=== PATIENT | female | born 1990 | race Caucasian/White ===

== ENCOUNTER 2019-12-19 08:10 | Inpatient (IN) | payer OTHER, SELFPAY ==
[2019-12-19] MEDS ORDERED: Methylergonovine 0.2 MG/ML VIAL IM PRN (08:31)
[2019-12-19] MEDS ORDERED: Lidocaine 1% (PF) 30 ML VIAL SC PRN (08:31)
[2019-12-19] MEDS ORDERED: Calcium Gluc 4.6 MEQ/10 ML (100 MG/ML) SLOW IVP PRN (08:31)
[2019-12-19] MEDS ORDERED: Promethazine HCl 25 MG/ML VIAL IM PRN ×2 (08:31→10:10)
[2019-12-19] MEDS ORDERED: Ondansetron PF 4 MG/2 ML Vial IVP PRN ×2 (08:31→10:10)
[2019-12-19] MEDS ORDERED: Butorphanol Tartrate 1 MG/ML VIAL SLOW IVP PRN (08:31)
[2019-12-19] MEDS ORDERED: Acetaminophen 500 MG TAB PO PRN (08:31)
[2019-12-19] MEDS ORDERED: Misoprostol 200 MCG TAB PR PRN (08:31)
[2019-12-19] MEDS ORDERED: hydrALAZINE 20 MG/ML VIAL SLOW IVP PRN (08:31)
[2019-12-19] MEDS ORDERED: Ibuprofen 800 MG TAB PO PRN (08:31)
[2019-12-19] MEDS ORDERED: Carboprost 250 MCG/ML AMP IM PRN (08:31)
[2019-12-19] MEDS: Lactated Ringer's 1,000 ML IV SCH ×3 (08:40→13:26)
[2019-12-19] MEDS ORDERED: hydrALAZINE 20 MG/ML VIAL ONE (08:42)
[2019-12-19] MEDS ORDERED: NS w/ Oxytocin 10 units 500 ML IV SCH ×2 (08:45)
[2019-12-19] MEDS ORDERED: Penicillin G Potassium 5 MILL.UNITS in Sodium Chloride 0.9% 100 ML IVPB SCH (08:45)
[2019-12-19 08:48] VITALS: BMI 34.0
[2019-12-19] MEDS ORDERED: Magnesium Sulfate 20 gm/500 ml 20 GM/500 ML BAG ONE (08:48)
[2019-12-19] MEDS ORDERED: Magnesium Sulfate 20 gm/500 ml 20 GM/500 ML BAG IVPB SCH (09:00)
[2019-12-19] MEDS ORDERED: Magnesium Sulfate 20 GM/WATER 500 ML BAG IVPB SCH (09:00)
[2019-12-19 09:02] LABS: Hemoglobin 11.6 g/dL (12.0-16.0); Mean Corpuscular HGB CONC 33.4 g/dL (32.0-36.0); Mean Corpuscular Volume 92.8 fL (78.0-98.0); Mean Platelet Volume 11.1 fL (7.4-10.4); Platelet Count 244 thou/uL (130-400); RBC Distribution Width 13.1 % (11.5-14.5); Red Blood Cell (RBC) Count 3.74 mill/uL (4.20-5.40)
[2019-12-19] MEDS ORDERED: Fentanyl 4 mcg/Bup 0.1% Cadd 100 ML ONE (09:02)
[2019-12-19] MEDS ORDERED: Tranexamic Acid 1,000 MG/10 ML VIAL ONE (09:12)
[2019-12-19] MEDS ORDERED: Tranexamic Acid 1,000 MG in Sodium Chloride 0.9% 100 ML IVP SCH (09:13)
[2019-12-19 09:37] LABS: Syphilis Antibody Nonreactive (Nonreactive); Syphilis Antibody Index 0.02 S/CO (<1.00 Non-Reactive)
[2019-12-19 09:43] LABS: ALT (SGPT) 8 U/L (8-55); AST (SGOT) 11 U/L (5-34); Albumin 3.3 g/dL (3.5-5.0); Alkaline Phosphatase 116 U/L (40-110); Anion Gap 15 mmol/L (10-20); BUN (Urea Nitrogen) 8 mg/dL (7.0-18.7); Bilirubin, Total 0.2 mg/dL (0.2-1.2); Calc. Creatinine Clearance 217 mL/min (70-130); Calcium 9.7 mg/dL (7.8-10.44); Carbon Dioxide 20 mmol/L (22-29); Chloride 105 mmol/L (98-107); Estimated GFR-MDRD Greater than 90; Globulin 3.1 g/dL (2.4-3.5); Glucose 88 mg/dL (70-105); Protein, Total 6.4 g/dL (6.0-8.3); Sodium 136 mmol/L (136-145)
[2019-12-19 09:51] LABS: HBSAg Index 0.13 S/CO (0-0.99); HIV (1/2) Antibody/Antigen Non-Reactive (NonReactive); HIV 1/2 INDEX 0.18 S/CO (<1.00); Hep B Surf AB Non-Reactive (NonReactive); Hep B Surf Ag Non-Reactive S/CO (NonReactive)
[2019-12-19 09:52] LABS: HBSAB Concentration 1.32 mIU/mL
--- NOTE | 2019-12-19 10:00 | ULT ---
OB ULTRASOUND: BIOPHYSICAL PROFILE ULTRASOUND: HISTORY: The patient is in active labor. No care. FINDINGS: A single live intrauterine gestation is seen with measurements corresponding to an estimated gestatio nal age of 37 weeks 0 days and an MARIN of 01/09/2020. The estimated weight measures 3042 g (6 lb s 11 oz), 80th percentile by Hadlock criteria. measurements are as follows: BPD: 9.11 cm (37 weeks 0 days) HC: 32.16 cm (36 weeks 2 days) AC: 31.92 cm (35 weeks 6 days) FL: 7.62 cm (39 weeks 0 days) heart rate measures 150 beats per minute. Placenta is anteriorly located without evidence of pl acenta previa. DOROTHEA measures 7.4 cm. anatomy was not satisfactorily evaluated. The presentation is vertex. OBSTETRICAL BIOPHYSICAL PROFILE: tone: 0 breathin movement: 2 Amniotic fluid: 2 IMPRESSION: 1. A single live intrauterine of 37 weeks' 0 days' estimated gestational age and an estimat ed date of delivery of 01/09/2020. 2. Ultrasound biophysical profile score is 4/8. The report was given to the patient's nurse (Britany) by the lace sewer at the time of the exam. POS: OFF
[2019-12-19 10:03] LABS: #Basophils 0.1 thou/uL (0.0-0.2); #Eosinphils 0.1 thou/uL (0.0-0.7); #Lymphocytes 1.9 thou/uL (1.20-3.40); #Monocytes 0.7 thou/uL (0.11-0.59); #Neutrophils 8.3 thou/uL (1.40-6.50); %Basophils 0.5 % (0.0-1.0); %Eosinophils 0.9 % (0.0-10.0); %Lymphocytes 17.5 % (21.0-51.0); %Monocytes 6.1 % (0.0-10.0); %Neutrophils 74.9 % (42.0-75.0)
[2019-12-19 10:09] LABS: Bilirubin Negative (Negative); Blood, Urine Negative (Negative); Clarity Clear (Clear); Glucose, Urine (Dipstick) Normal (Negative); Leukocyte Negative Leu/uL (Negative); Nitrite Negative (Negative); Protein, Urine (Dipstick) 20 mg/dL (Neg-Trace); RBC/HPF 0-3 HPF (0-3); Squamous Epithelial 0-3 HPF (0-3); Urobilinogen Normal mg/dL (Less than 2); WBC/HPF 0-3 HPF (0-3)
[2019-12-19 10:10] LABS: Bacteria/HPF 1+ HPF (None Seen)
[2019-12-19] MEDS ORDERED: Lactated Ringer's 500 ML IV PRN (10:10)
[2019-12-19] MEDS ORDERED: EPHEDRINE 25 MG/5 ML SYRINGE SLOW IVP PRN (10:10)
[2019-12-19] MEDS ORDERED: diphenhydrAMINE 50 MG/ML VIAL IVP PRN (10:10)
[2019-12-19] MEDS ORDERED: Naloxone HCl 0.4 mg/ml Vial IVP PRN ×2 (10:10)
[2019-12-19] MEDS ORDERED: Fentanyl 4 mcg/Bupivacaine 0.1% Cassette 100 ML EPIDURAL SCH (10:15)
[2019-12-19] MEDS ORDERED: Communication Order-Pharmacy FS SCH (10:15)
[2019-12-19 10:16] LABS: Amphetamine Not Detected (NotDetected); Barbiturates Screen Not Detected (NotDetected); Benzodiazepine Screen Not Detected (NotDetected); Cocaine Metabolite Screen Not Detected (NotDetected); Medtox Control Line Valid? VALID (VALID); Medtox Reader # READER 4; Methadone Not Detected (NotDetected); Methamphetamine Not Detected (NotDetected); Opiate Screen Not Detected (NotDetected); Oxycodone Screen Not Detected (NotDetected); Phencyclidine (PCP) Not Detected (NotDetected); THC/Cannabinoid Screen Not Detected (NotDetected); Tricyclic Screen Not Detected (NotDetected)
--- NOTE | 2019-12-19 10:19 | PDOC.FPROB ---
FMR OB H&P: HPI - History of Present Illness Chief Complaint: Ctx Indentification: 29 yo @ 35.5 weeks by unsure LMP History of Present Illness: 29 yo is here presents with ctx. Pt having painful ctx only a few minutes apart. Pt has had no care. Denies any LOF. Reports some spotting earlier this morning. Reports FM. Denies any headaches, vision changes. Denies any swelling. Denies any n/v/d/c. Pt denies any urinary sx's or burning. Primary Care Physician: No care FMR OB H&P: Current - Care : 3 Para: 1 Gestational age: 35.5 - OB Labs Blood type: unknown RH: unknown Antibody Screen: unknown HIV: unknown RPR: unknown HepBsAg: unknown Quad screen: unknown Urine drug screen: not done Gonorrhea: unknown Chlamydia: unknown GBS: unknown FMR OB H&P: History - Past Medical History PMH: GERD w/ ulcers, Anxiety, Asthma - OB History OB History: Hx of Pre-Eclampsia and PP hemorrhage in prior delivery, Hx of miscarriagex1 - NEUROPHYSIOLOGY TECH History NEUROPHYSIOLOGY TECH History: Denies any hx of STD or abnormal pap smears - Surgical History Sx History: None - Social History Social History: Denies any smoking, drinking or illicit drug use during . - Family History Family History: Noncontributory FMR OB H&P: Medications - Current Home Medications: Medication Instructions Recorded Confirmed Type Vitamin 1 tab PO DAILY 12/19/19 12/19/19 History Allergies/Adverse Reactions: Allergies Allergy/AdvReac Type Severity Reaction Status Date / Time No Known Drug Allergies Allergy Verified 12/19/19 08:37 FMR OB H&P: ROS - Review of Systems General: denies: fever/chills, weight/appetite/sleep changes Eyes: denies: vision changes, double vision, scotomas Cardiovascular: denies: chest pain Respiratory: denies: cough, congestion, shortness of breath Gastrointestinal: denies: abdominal pain, cramping, nausea, vomiting, diarrhea, constipation Genitourinary (Female): denies: incontinence, dysuria, hematuria Musculoskeletal: denies: pain, swelling Neurologic: denies: numbness, seizures Integumentary: denies: itching, rash Hematologic/Lymphatic: denies: prolonged or excessive bleeding Psychological: reports: anxiety. denies: depression FMR OB H&P: Vital Signs - Maternal Vital signs: Vital Signs - First Documented Temp Pulse Resp BP 98.9 F 88 22 H 166/101 H 12/19/19 08:21 12/19/19 08:21 12/19/19 08:21 12/19/19 08:21 - Heart Tones Baseline: 130 Variability: moderate Acceleration: present Deceleration: absent Category: category 1 [place] contractions every: 2-3 minutes FMR OB H&P: Physical Exam - Physical Exam General: NAD, awake, alert and oriented HEENT: normocephalic and atraumatic, grossly normal vision, grossly normal hearing Neck: supple, FROM, trachea midline Heart: RRR, normal S1/S2, no murmurs/rubs/gallops, pulses present, no edema General: CTAB, no respiratory distress, good air movement, no rales/rhonchi, no wheezing, no retractions Abdomen: soft, gravid, non-tender, bowel sound present, no masses Musculoskeletal: normal gait and station, FROM in all four extremities Neurological: sensation to pain,touch and proprioception grossly normal Skin: no rash, capillary refill <2 seconds Lymphatic: no unusual bruising or bleeding - Pelvic Exam SVE: 5/80/-2 upon admisson FMR OB H&P: Results - Labs Lab results: Laboratory Results - last 24 hr 12/19/19 12/19/19 12/19/19 08:43 08:43 08:44 WBC 11.0 H RBC 3.74 L Hgb 11.6 L Hct 34.7 L MCV 92.8 MCH 31.0 MCHC 33.4 RDW 13.1 Plt Count 244 MPV 11.1 H Neutrophils % 74.9 Neutrophils % (Manual) Not Reportable Lymphocytes % 17.5 L Monocytes % 6.1 Eosinophils % 0.9 Basophils % 0.5 Neutrophils # 8.3 H Lymphocytes # 1.9 Monocytes # 0.7 H Eosinophils # 0.1 Basophils # 0.1 Sodium Potassium Chloride Carbon Dioxide Anion Gap BUN Creatinine Estimated GFR (MDRD) Glucose Calcium Total Bilirubin AST ALT Alkaline Phosphatase Serum Total Protein Albumin Globulin Albumin/Globulin Ratio Urine Color Urine Clarity Urine pH Ur Specific [place] Urine Protein Urine Glucose (UA) Urine Ketones Urine Blood Urine Nitrite Urine Bilirubin Urine Urobilinogen Ur Leukocyte Esterase Urine RBC Urine WBC Ur Squamous Epith Cells Urine Bacteria Urine Opiates Screen Ur Oxycodone Screen Urine Methadone Screen Ur Propoxyphene Screen Ur Barbiturates Screen Ur Tricyclics Screen Ur Phencyclidine Scrn Ur Amphetamines Screen U Methamphetamines Scrn U Benzodiazepines Scrn U Cocaine Metab Screen U Cannabinoids Screen Drug Screen Comment Syphilis IgG/IgM Ab Nonreactive Hep Bs Antigen Hep Bs Antibody Hep Bs Antibody Index HIV 1&2 Antigen & Ab Blood Type O POSITIVE Antibody Screen NEGATIVE 12/19/19 12/19/19 12/19/19 08:46 08:57 08:57 WBC RBC Hgb Hct MCV MCH MCHC RDW Plt Count MPV Neutrophils % Neutrophils % (Manual) Lymphocytes % Monocytes % Eosinophils % Basophils % Neutrophils # Lymphocytes # Monocytes # Eosinophils # Basophils # Sodium Potassium Chloride Carbon Dioxide Anion Gap BUN Creatinine Estimated GFR (MDRD) Glucose Calcium Total Bilirubin AST ALT Alkaline Phosphatase Serum Total Protein Albumin Globulin Albumin/Globulin Ratio Urine Color Light-Yellow Urine Clarity Clear Urine pH 6.5 Ur Specific [place] 1.019 Urine Protein 20 Urine Glucose (UA) Normal Urine Ketones Negative Urine Blood Negative Urine Nitrite Negative Urine Bilirubin Negative Urine Urobilinogen Normal Ur Leukocyte Esterase Negative Urine RBC 0-3 Urine WBC 0-3 Ur Squamous Epith Cells 0-3 Urine Bacteria 1+ A Urine Opiates Screen Not Detected Ur Oxycodone Screen Not Detected Urine Methadone Screen Not Detected Ur Propoxyphene Screen Not Detected Ur Barbiturates Screen Not Detected Ur Tricyclics Screen Not Detected Ur Phencyclidine Scrn Not Detected Ur Amphetamines Screen Not Detected U Methamphetamines Scrn Not Detected U Benzodiazepines Scrn Not Detected U Cocaine Metab Screen Not Detected U Cannabinoids Screen Not Detected Drug Screen Comment Syphilis IgG/IgM Ab Hep Bs Antigen Non-Reactive Hep Bs Antibody Non-Reactive Hep Bs Antibody Index 1.32 HIV 1&2 Antigen & Ab Non-Reactive Blood Type Antibody Screen 12/19/19 12/19/19 09:08 09:10 WBC RBC Hgb Hct MCV MCH MCHC RDW Plt Count MPV Neutrophils % Neutrophils % (Manual) Lymphocytes % Monocytes % Eosinophils % Basophils % Neutrophils # Lymphocytes # Monocytes # Eosinophils # Basophils # Sodium 136 Potassium 4.0 Chloride 105 Carbon Dioxide 20 L Anion Gap 15 BUN 8 Creatinine 0.63 Estimated GFR (MDRD) Greater than 90 Glucose 88 Calcium 9.7 Total Bilirubin 0.2 AST 11 ALT 8 Alkaline Phosphatase 116 H Serum Total Protein 6.4 Albumin 3.3 L Globulin 3.1 Albumin/Globulin Ratio 1.1 L Urine Color Urine Clarity Urine pH Ur Specific [place] Urine Protein Urine Glucose (UA) Urine Ketones Urine Blood Urine Nitrite Urine Bilirubin Urine Urobilinogen Ur Leukocyte Esterase Urine RBC Urine WBC Ur Squamous Epith Cells Urine Bacteria Urine Opiates Screen Ur Oxycodone Screen Urine Methadone Screen Ur Propoxyphene Screen Ur Barbiturates Screen Ur Tricyclics Screen Ur Phencyclidine Scrn Ur Amphetamines Screen U Methamphetamines Scrn U Benzodiazepines Scrn U Cocaine Metab Screen U Cannabinoids Screen Drug Screen Comment Syphilis IgG/IgM Ab Hep Bs Antigen Hep Bs Antibody Hep Bs Antibody Index HIV 1&2 Antigen & Ab Blood Type O POSITIVE Antibody Screen FMR OB H&P: A/P - Problem List (1) Current Visit: Yes Status: Acute Qualifiers: Weeks of gestation: 35 weeks Qualified Code(s): Z3A.35 - 35 weeks gestation of (2) Preeclampsia, severe Current Visit: Yes Status: Acute Code(s): O14.10 - SEVERE PRE-ECLAMPSIA, UNSPECIFIED TRIMESTER (3) No care in current Current Visit: Yes Status: Acute Code(s): O09.30 - SUPRVSN OF PREG W INSUFFICIENT ANTENAT CARE, UNSP TRIMESTER Disposition: 29 yo @ 35.5 weeks by unsure LMP and no care presents w/ ctx , No care -Routine OB labs ordered. -GBS, G/CT cultures ordered. -Growth, Dating sono ordered. -SVE upon admission showed pt dilated to 5/80/-2. Pt have ctx every 2-3 minutes. Pt in labor. Membranes intact. -Anesthesia consulted- epidural wanted -Will admit and manage labor. -GBS unknown- Penicillin ppx ordered Pre-E w/ Severe features -Pt had two severe range pressures upon admission. -Pre-E labs CMP, CBC, pr/cr urine ratio ordered. -Will start on Mg for treatment. -Hydralazine IV prn for severe range pressures. -will augment labor as needed for delivery Hx PP hemorrhage -Never required blood products. -Pt htn and has asthma. TXA prn ordered Hx of Asthma -No recent exacerbations -Avoid hemabate Discussion: Date/Time: 12/19/19 1017 This H&P was discussed with [] and [] who agree with the above documentation and plan. Addendum - Attending - Attending Attestation Date/Time: 12/19/19 5988 I personally evaluated the patient and discussed the management with Dr. Sorenson. with no PNC presents in labor with elevated BP. Biometry c/w term IUP. Mg started and will proceed with delivery. I agree with the History, Examination, Assessment and Plan documented above.
[2019-12-19] MEDS ORDERED: Bupivacaine/Epinephrine 0.25% 30 ML VIAL ONE (11:04)
[2019-12-19 11:27] LABS: Creatinine, Urine 30.53 mg/dL (47-110)
[2019-12-19] MEDS ORDERED: Penicillin G 2.5 MILL.units 2.5 MILL.UNITS in Premix Bag 1 BAG IVPB SCH (13:00)
[2019-12-19] MEDS: NS / Oxytocin 40 units/1000ml 1,000 ML IV PRN ×2 (14:45→20:04)
[2019-12-19 15:06] LABS: Actual Bicarbonate (HCO3a) 24.3 mEq/L (22-28); Actual Bicarbonate (HCO3v) 23 mEq/L (22-28); Base Excess -5.1 mEq/L (-2.0 to +3.0); Base Excess (BEa) -4.7 mEq/L (-2.0 to +3.0); pH (Cord, venous) 7.26 (7.32-7.43)
[2019-12-19] MEDS ORDERED: Milk Of Magnesia 30 ML UDCUP PO PRN (15:06)
[2019-12-19] MEDS ORDERED: Bisacodyl 10 MG SUPP PR PRN (15:06)
[2019-12-19] MEDS ORDERED: Lanolin Ointment 7 GM TUBE TOP PRN (15:06)
[2019-12-19] MEDS ORDERED: diphenhydrAMINE 25 MG CAP PO PRN (15:06)
[2019-12-19] MEDS ORDERED: Benzocaine-Menthol 82.5 ML CAN TOP PRN (15:06)
[2019-12-19] MEDS ORDERED: Preparation H Ointment 28 GM TUBE PR PRN (15:06)
--- NOTE | 2019-12-19 15:49 | PDOC.LDPN ---
Labor & Delivery Progress Note - Subjective Subjective: comfortable - Objective Vital signs reviewed and normal: yes General: NAD, resting Uterine fundus: non tender SVE: 12:00 Dilation: 6 Effacement: 100% Station: -1 FHT: category 1 [place] contractions every: 2-3 minutes - Assessment (1) Current Visit: Yes Status: Acute Qualifiers: Weeks of gestation: 35 weeks Qualified Code(s): Z3A.35 - 35 weeks gestation of (2) Preeclampsia, severe Code(s): O14.10 - SEVERE PRE-ECLAMPSIA, UNSPECIFIED TRIMESTER Current Visit: Yes Status: Acute (3) No care in current Code(s): O09.30 - SUPRVSN OF PREG W INSUFFICIENT ANTENAT CARE, UNSP TRIMESTER Current Visit: Yes Status: Acute Plan: continue plan of care, pitocin for augmentation -: 29 yo @ 35.5 weeks by unsure LMP and no care presents w/ ctx , No care -GBS, G/CT cx pending -labs reviewed and no abnormality noted -SVE @ 12 6/100/-1. Pt SROM -Epidural placed. -CAT 1 strip. FHR 140. Pt had episode of variable after epidural placement and BP dropped. Dose ephedrine given and tracing quickly recovered. -Pitocin for augmentation of labor. Pre-E w/ Severe features -Pt had two severe range pressures upon admission. -Pre-E labs reviewed. Pr/Cr urine ratio .36. -Getting Mg infusion. -Hydralazine IV prn for severe range pressures. Hx PP hemorrhage -Never required blood products. -Pt htn and has asthma. TXA prn ordered Hx of Asthma -No recent exacerbations -Avoid hemabate Addendum - Attending - Attending Attestation Date/Time: 12/19/192033 I personally evaluated the patient and discussed the management with Dr. Sorenson. I agree with the History, Examination, Assessment and Plan documented above.
--- NOTE | 2019-12-19 15:54 | PDOC.OPDEL ---
OB Operative/Delivery Note Delivery Dr/Surgeon: Yas Guidry PGY-3 Pre-Delivery Diagnosis: active labor, other (Pre-Eclampsia w/ Severe Features) Weeks gestation: 35 (5 days) Anesthesia: epidural - Additional Findings/Plan Placenta delivered: spontaneous Repaired Obstetrical Laceration: none Estimated blood loss: 150 Compilations/Other Findings: Delivery note: This is a 29 yo F @ 35.5 weeks by unsure LMP delivered a viable F 14:39. Following an uneventful antepartum course, a vigourous F was delivered over and intact perineum in the occipitoanterior position. There was some delayed delivery of antior shoulder and body due to poor maternal pushing. Pt was placed in prophylactic [facility] position and was then delivered. No nuchal cord. The head was held down and mouth and nares were bulb suctioned. Cord clamped and cord gas segment and cord blood was obtained. PLacenta delivered intact w/ a 3 vessel cord noted. Fundal massage was performed and the fundus was noted to be firm. There was some mild delay of uterus to firm and with pt hx of pp hemorrhage, a dose of cytotec was given rectally. The cervix and vagina were inspected and found to free of lacerations. Infant went to nursery in good condition for routine care. Apgars were 7/9 at 1,5 minutes respectively. Pt tolerated delivery well and will continue to get Mg infusion for 24 hours 2/2 severe pre- eclampsia. Placenta was sent for path due to no care. Post delivery plan: recovery in LICU Addendum - Attending - Attending Attestation Date/Time: 12/19/192032 I personally assisted with this with Dr. Sorenson I agree with the Assessment and Plan documented above.
[2019-12-19] MEDS: Acetaminophen 325 MG TAB PO PRN (20:05)
[2019-12-19] MEDS: Ferrous Sulfate 325 MG TAB PO SCH (20:57)
[2019-12-20] MEDS: Acetaminophen 325 MG TAB PO PRN (01:56)
--- NOTE | 2019-12-20 05:31 | PDOC.PP ---
Post Progress Note Post Day #: 1 Subjective: Pt reports doing well. Reports light lochia. Tolerating PO. Denies any fever or chills. Reports pain well controlled. Denies any chest pain or SOB. PO intake tolerated: yes Flatus: yes Ambulation: yes Vital Signs (12 hours) Pulse 12/19/19 20:56 88 Weight Weight 104.326 kg - Physical Examination General: NAD Cardiovascular: no m/r/g, RRR Respiratory: clear to auscultation bilaterally, non-labored breathing Abdominal: + bowel sounds, lochia (light), no distention, appropriately TTP Fundus firm & at: below umbilicus Extremities: negative homans (B) Neurological: no gross focal deficits (+2 DTR noted) Psychiatric: A&Ox3, normal affect Result Diagrams: 12/19/19 08:43 12/19/19 09:08 Additional Labs: Post Labs Blood Type O POSITIVE 12/19/19 09:10 Hep Bs Antigen Non-Reactive S/CO (NonReactive) 12/19/19 08:46 (1) Status: Acute Qualifiers: Weeks of gestation: 35 weeks Qualified Code(s): Z3A.35 - 35 weeks gestation of (2) Preeclampsia, severe Code(s): O14.10 - SEVERE PRE-ECLAMPSIA, UNSPECIFIED TRIMESTER Status: Acute (3) No care in current Code(s): O09.30 - SUPRVSN OF PREG W INSUFFICIENT ANTENAT CARE, UNSP TRIMESTER Status: Acute - Assessment/Plan 29 yo @ 35.5 weeks by unsure LMP delivered [place] F on 12/19/19 via @ Post , No care -GBS, G/CT cx pending -labs reviewed and no abnormality noted -Pain well controlled -VSS Pre-E w/ Severe features -Pt had two severe range pressures upon admission. -Pre-E labs reviewed. Pr/Cr urine ratio .36. -Getting Mg infusion pp for 24 hours. Infusion will end around 1400 today -Hydralazine IV prn for severe range pressures. -Urine Output 100-200 ml/hr Dispo: will stop mag infusion later today and watch BP pp for 24 hours. Addendum - Attending - Attending Attestation Date/Time: 12/20/19 0649 I personally evaluated the patient and discussed the management with Dr. Sorenson. Doing well s/p , on Mg x 24 hrs. I agree with the History, Examination, Assessment and Plan documented above.
[2019-12-20 06:51] LABS: Hemoglobin 10.3 g/dL (12.0-16.0); Mean Corpuscular HGB CONC 32.9 g/dL (32.0-36.0); Mean Corpuscular Hemoglobin 31.2 pg (27.0-31.0); Mean Corpuscular Volume 94.9 fL (78.0-98.0); Mean Platelet Volume 10.4 fL (7.4-10.4); Platelet Count 202 thou/uL (130-400); RBC Distribution Width 13.2 % (11.5-14.5); Red Blood Cell (RBC) Count 3.29 mill/uL (4.20-5.40); White Blood Cell (WBC) Count 15.3 thou/uL (4.8-10.8)
[2019-12-20] MEDS ORDERED: Prenatal Vitamin 1 TAB PO SCH (09:00)
[2019-12-20] MEDS: Docusate Calcium (SURFAK) 240 MG CAP PO SCH ×3 (10:37→21:32)
[2019-12-20] MEDS: Ferrous Sulfate 325 MG TAB PO SCH ×2 (10:37→17:04)
[2019-12-20] MEDS ORDERED: Adacel (T-DAP) 0.5 ML SYRINGE IM ONE (15:06)
[2019-12-20] MEDS ORDERED: Bisacodyl 10 MG SUPP PR PRN (15:12)
[2019-12-20] MEDS ORDERED: Milk Of Magnesia 30 ML UDCUP PO PRN (15:12)
[2019-12-20] MEDS ORDERED: Acetaminophen/Codeine 30-300mg Tablet PO PRN ×2 (15:13)
--- NOTE | 2019-12-20 15:15 | PDOC.EVN ---
Event Note - Event Note Event Note: S/p MagSulfate....in transfer to
[2019-12-20] MEDS: Lactated Ringer's 1,000 ML IV SCH (15:34)
[2019-12-20 19:37] LABS: Chlamydia by PCR Not Detected (NotDetected); GC by PCR Not Detected (NotDetected)
[2019-12-20] MEDS: Ibuprofen 800 MG TAB PO PRN (21:33)
[2019-12-21 06:14] LABS: Hemoglobin 9.5 g/dL (12.0-16.0)
--- NOTE | 2019-12-21 06:15 | PDOC.PP ---
Post Progress Note Post Day #: 2 Subjective: Doing well PO intake tolerated: yes Flatus: yes Ambulation: yes Vital Signs (12 hours) Temp Pulse Resp BP Pulse Ox 12/21/19 04:40 98.7 F 72 18 130/81 96 12/21/19 00:00 98.5 F 80 18 121/77 96 12/20/19 20:32 98.8 F 80 18 149/77 H 96 Weight Weight 230 lb - Physical Examination General: NAD Cardiovascular: no m/r/g Respiratory: clear to auscultation bilaterally Abdominal: + bowel sounds, lochia, no distention Extremities: negative homans (B) Neurological: no gross focal deficits Psychiatric: A&Ox3, normal affect Result Diagrams: 12/20/19 06:44 12/19/19 09:08 Additional Labs: Post Labs Blood Type O POSITIVE 12/19/19 09:10 Hep Bs Antigen Non-Reactive S/CO (NonReactive) 12/19/19 08:46 (1) Vaginal delivery Code(s): O80 - ENCOUNTER FOR FULL-TERM UNCOMPLICATED DELIVERY Status: Acute (2) No care in current Code(s): O09.30 - SUPRVSN OF PREG W INSUFFICIENT ANTENAT CARE, UNSP TRIMESTER Status: Acute - Assessment/Plan PPD2, s/p Mag day 1...BPs are wnl to very mild range htn (140/90s). Likely follow BPs today and home tomorrow AM.
[2019-12-21] MEDS: Ibuprofen 800 MG TAB PO PRN (06:25)
--- NOTE | 2019-12-21 06:42 | PDOC.EVN ---
Event Note - Event Note Event Note: DC note addendum I discussed continued BP OBS today and DC to home with the karen. She statated she preferred home today due to other social issues at home. I did review signs/sxs of PI and we agreed to send her home at 1400 today. She will get a check up in 1 week to check BPs.
[2019-12-21 07:46] VITALS: BP 138/81; TEMP 98.8
[2019-12-21] MEDS: Docusate Calcium (SURFAK) 240 MG CAP PO SCH (09:40)
[2019-12-21] MEDS: Ferrous Sulfate 325 MG TAB PO SCH (09:40)
--- NOTE | 2019-12-23 15:57 | ULT ---
OB ULTRASOUND: BIOPHYSICAL PROFILE ULTRASOUND: HISTORY: The patient is in active labor. No care. FINDINGS: A single live intrauterine gestation is seen with measurements corresponding to an estimated gestatio nal age of 37 weeks 0 days and an MARIN of 01/09/2020. The estimated weight measures 3042 g (6 lb s 11 oz), 80th percentile by Hadlock criteria. measurements are as follows: BPD: 9.11 cm (37 weeks 0 days) HC: 32.16 cm (36 weeks 2 days) AC: 31.92 cm (35 weeks 6 days) FL: 7.62 cm (39 weeks 0 days) heart rate measures 150 beats per minute. Placenta is anteriorly located without evidence of pl acenta previa. DOROTHEA measures 7.4 cm. anatomy was not satisfactorily evaluated. The presentation is vertex. OBSTETRICAL BIOPHYSICAL PROFILE: tone: 0 breathin movement: 2 Amniotic fluid: 2 IMPRESSION: 1. A single live intrauterine of 37 weeks' 0 days' estimated gestational age and an estimat ed date of delivery of 01/09/2020. 2. Ultrasound biophysical profile score is 4/8. The report was given to the patient's nurse (Britany) by the specialty person at the time of the exam.
== END 2019-12-21 14:30 | disposition home or self-care (01) | DRG 807 ==
LOC: L&D/OP 08:10 → L&D 08:32 → 3SW 12-20 15:53
PROVIDERS: ADMIT Obstetrics & Gynecology; ATTEND Obstetrics & Gynecology
PROC: 10E0XZZ Delivery of Products of Conception, External Approach (ICD-10-PCS; principal; 2019-12-19)
DX: O14.14 Severe pre-eclampsia complicating childbirth (principal); Z37.0 Single live birth; O99.62 Diseases of the digestive system complicating childbirth; O99.344 Other mental disorders complicating childbirth; J45.909 Unspecified asthma, uncomplicated; O99.52 Diseases of the respiratory system complicating childbirth; K21.9 Gastro-esophageal reflux disease without esophagitis; Z3A.35 35 weeks gestation of pregnancy
CPT/HCPCS: 36415; 51702; 76805; 76819; 80053; 80306; 81001; 82570; 82805; 83735; 84156; 85014; 85018; 85027; 86706; 86762; 86780; 86850; 86900; 86901; 87081; 87340; 87389; 87491; 87591; 88307; 99285; J0360; J2405; J2540; J2590; J3475; J3490